=== PATIENT | male | born 1985 | race Two or more races ===

== ENCOUNTER 2019-12-14 15:11 | Emergency (ER) | payer BC ==
[~2019-12-14] VITALS: Ht 177.8 cm; Wt 105.0 kg
--- NOTE | 2019-12-14 15:32 | PHYS DOC ---
General Adult EDM: Chief Complaint: ABDOMINAL PAIN HPI: HPI: Patient is a 34 year old male who presented to ER today for evaluation of abdominal pain, nausea vomiting for about a week. Patient says sometimes he vomits he noted trace of blood in his vomitus. Patient denies any fever, no chills, no headache, no chest pain. Patient had not had this Problem in the past. Patient drinks alcohol socially. Patient had not been taking ibuprofen or Tylenol or Motrin or aspirin. Review of Systems: Review of Systems: Constitutional: Denies fever or chills. [] Eyes: Denies change in visual acuity. [] HENT: Denies nasal congestion or sore throat. [] Respiratory: Denies cough or shortness of breath. [] Cardiovascular: Denies chest pain or edema. [] GI: Positive for abdominal pain, nausea, vomiting, no bloody stools or diarrhea. [] : Denies dysuria. [] Musculoskeletal: Denies back pain or joint pain. [] Integument: Denies rash. [] Neurologic: Denies headache, focal weakness or sensory changes. [] Endocrine: Denies polyuria or polydipsia. [] Lymphatic: Denies swollen glands. [] Psychiatric: Denies depression or anxiety. [] Heart Score: Risk Factors: Risk Factors: DM, Current or recent (<one month) smoker, HTN, HLP, family history of CAD, obesity. Risk Scores: Score 0 - 3: 2.5% MACE over next 6 weeks - Discharge Home Score 4 - 6: 20.3% MACE over next 6 weeks - Admit for Clinical Observation Score 7 - 10: 72.7% MACE over next 6 weeks - Early Invasive Strategies Current Medications: Current Medications Medications (Trade) Dose Ordered Sig/Rachelle Start Time Stop Time Status Last Admin Dose Admin Famotidine (Pepcid Vial) 20 mg 1X ONCE 12/14/19 17:30 12/14/19 17:31 DC 12/14/19 17:42 20 MG Iohexol (Omnipaque 300 Mg/ml) 100 ml 1X ONCE 12/14/19 16:45 12/14/19 16:46 DC 12/14/19 16:50 75 ML Multi-Ingredient Mouthwash/Gargle (Gi Cocktail) 20 ml 1X ONCE 12/14/19 17:30 12/14/19 17:31 DC 12/14/19 17:42 20 ML Physical Exam: PE: Constitutional: Well developed, well nourished, no acute distress, non-toxic appearance. [] HENT: Normocephalic, atraumatic, bilateral external ears normal, oropharynx moist, no oral exudates, nose normal. [] Eyes: PERRLA, EOMI, conjunctiva normal, no discharge. [] Neck: Normal range of motion, no tenderness, supple, no stridor. [] Cardiovascular:Heart rate regular rhythm, no murmur [] Lungs & Thorax: Bilateral breath sounds clear to auscultation [] Abdomen: Bowel sounds normal, soft, there is tenderness at periumbilical area, no masses, no pulsatile masses. [] Skin: Warm, dry, no erythema, no rash. [] Back: No tenderness, no CVA tenderness. [] Extremities: No tenderness, no cyanosis, no clubbing, ROM intact, no edema. [] Neurologic: Alert and oriented X 3, normal motor function, normal sensory function, no focal deficits noted. [] Psychologic: Affect normal, judgement normal, mood normal. [] Current Patient Data: Labs: Laboratory Tests Test 12/14/19 15:35 12/14/19 16:12 White Blood Count 5.9 x10^3/uL Red Blood Count 5.23 x10^6/uL Hemoglobin 15.8 g/dL Hematocrit 45.3 % Mean Corpuscular Volume 87 fL Mean Corpuscular Hemoglobin 30 pg Mean Corpuscular Hemoglobin Concent 35 g/dL Red Cell Distribution Width 13.0 % Platelet Count 246 x10^3/uL Neutrophils (%) (Auto) 61 % Lymphocytes (%) (Auto) 26 % Monocytes (%) (Auto) 8 % Eosinophils (%) (Auto) 4 % Basophils (%) (Auto) 1 % Neutrophils # (Auto) 3.6 x10^3/uL Lymphocytes # (Auto) 1.5 x10^3/uL Monocytes # (Auto) 0.5 x10^3/uL Eosinophils # (Auto) 0.2 x10^3/uL Basophils # (Auto) 0.0 x10^3/uL Prothrombin Time 12.8 SEC Prothromb Time International Ratio 1.0 Activated Partial Thromboplast Time 28 SEC Sodium Level 135 mmol/L Potassium Level 3.9 mmol/L Chloride Level 102 mmol/L Carbon Dioxide Level 28 mmol/L Anion Gap 5 Blood Urea Nitrogen 16 mg/dL Creatinine 1.3 mg/dL Estimated GFR (Cockcroft-Gault) 62.5 BUN/Creatinine Ratio 12 Glucose Level 94 mg/dL Calcium Level 8.6 mg/dL Total Bilirubin 0.8 mg/dL Aspartate Amino Transf (AST/SGOT) 23 U/L Alanine Aminotransferase (ALT/SGPT) 39 U/L Alkaline Phosphatase 82 U/L Total Protein 7.6 g/dL Albumin 3.7 g/dL Albumin/Globulin Ratio 0.9 Lipase 97 U/L Ethyl Alcohol Level < 10 mg/dL Urine Collection Type Unknown Urine Color [place] Urine Clarity Clear Urine pH 7.0 Urine Specific [place] >=1.030 Urine Protein 30 mg/dL Urine Glucose (UA) Negative mg/dL Urine Ketones (Stick) Trace mg/dL Urine Blood Negative Urine Nitrite Negative Urine Bilirubin Small Urine Urobilinogen Dipstick 0.2 mg/dL Urine Leukocyte Esterase Small Urine RBC 0 /HPF Urine WBC Rare /HPF Urine Squamous Epithelial Cells None /LPF Urine Bacteria 0 /HPF Urine Mucus Mod /LPF Urine Sperm Present /HPF Current Medications Medications (Trade) Dose Ordered Sig/Rachelle Route PRN Reason Start Time Stop Time Status Last Admin Dose Admin Iohexol (Omnipaque 300 Mg/ml) 100 ml 1X ONCE IV 12/14/19 16:45 12/14/19 16:46 DC 12/14/19 16:50 Famotidine (Pepcid Vial) 20 mg 1X ONCE IVP 12/14/19 17:30 12/14/19 17:31 DC 12/14/19 17:42 Multi-Ingredient Mouthwash/Gargle (Gi Cocktail) 20 ml 1X ONCE SWSW 12/14/19 17:30 12/14/19 17:31 DC 12/14/19 17:42 EKG: EKG: [] Radiology/Procedures: Radiology/Procedures: [][facility] [address] [place] [address] IMAGING REPORT Signed PATIENT: MEDHAT HOLLIDAY ACCOUNT: [id number] : 1985 LOCATION: ER AGE: 34 SEX: M EXAM STATUS: REG ER ORD. PHYSICIAN: STEFFANIE LAM DO REASON: mid abdominal pain, OMNI 300, 75 ML IV PROCEDURE: CT ABD PELV W/ IV CONTRST ONLY Exam: CT abdomen and pelvis with contrast INDICATION: Mid abdominal pain TECHNIQUE: Sequential axial images through the abdomen and pelvis obtained following the administration of 75 mL of Omni 300 IV contrast. Sagittal and coronal reformatted images were reconstructed from the axial data and reviewed. Comparisons: None FINDINGS: Heart size is normal. No pericardial effusion. Visualized lung bases are clear. No pleural effusion. Liver, spleen, pancreas, gallbladder and adrenals are unremarkable. No perinephric inflammation or hydronephrosis. No renal or ureteral calculi. Kidneys demonstrate symmetric enhancement. Bladder is decompressed not well evaluated. Prostate is not enlarged. Mild wall thickening noted involving proximal small bowel loops. Few diverticula noted predominantly in the descending and sigmoid colon without evidence of acute diverticulitis. Appendix is normal. No free abdominal air or fluid. No obstruction. Abdominal aorta has a normal course and caliber. Abdominal vasculature is patent. No suspicious osseous lesions or acute fractures. IMPRESSION: Findings likely related to mild enteritis involving the proximal small bowel. This may be infectious or inflammatory in etiology. Exposure: One or more of the following in the visualized dose reduction techniques were utilized for this examination: 1. Automated exposure control 2. Adjustment of the MA and/or KV according to patient size 3. Use of iterative of reconstructive technique Electronically signed by: Madhav Velasquez MD (12/14/2019 5:06 PM) [id number] DICTATED and SIGNED BY: MADHAV VELASQUEZ MD DATE: 12/14/19 1706 Course & Med Decision Making: Course & Med Decision Making Pertinent Labs and Imaging studies reviewed. (See chart for details) Patient is a 34-year-old male who presented to ER today for evaluation of abdominal pain, vomiting some trace of blood for about a week. CT scan her a bdomen pelvis and level did not show any acute problem. Patient will be discharged home with antiacid medication and Carafate. Patient was given phone number of the GI specialist for follow-up. Patient is amenable to plan of care. Dragon Disclaimer: Dragon Disclaimer: This electronic medical record was generated, in whole or in part, using a voice recognition dictation system. Departure Departure Impression: Primary Impression: Gastritis Disposition: HOME, SELF-CARE Condition: IMPROVED Referrals: NO PCP (PCP) CHASTITY LAL MD PLEASE CALL THIS GI DOCTOR FOR FOLLOW UP NEXT WEEK Patient Instructions: Gastritis, Adult Additional Instructions: Thank you for visiting our Emergency Department. We appreciate you trusting us with your care. If any additional problems come up don't hesitate to return to visit us. Please follow up with your primary care provider so they can plan additional care if needed and know about the problem that you had. If symptoms worsen come back to the Emergency Department. Any concerning symptoms that start such as chest pain, shortness of air, weakness or numbness on one side of the body, running high fevers or any other concerning symptoms return to the ER. Scripts Omeprazole Magnesium (PRILOSEC OTC) 20 Mg Tablet.dr 40 MG PO DAILY for 30 Days, #60 TAB Prov: STEFFANIE LAM DO 12/14/19 Sucralfate (CARAFATE) 1 Gm Tablet 1 TAB PO QID for 14 Days, #56 TAB 0 Refills Prov: STEFFANIE LAM DO 12/14/19 Justicifation of Admission Dx: Justifications for Admission: Justification of Admission Dx: N/A STEFFANIE LAM DO Dec 14, 2019 15:32
[2019-12-14 15:47] LABS: BASO % 1 % (0-3); EOS # 0.2 x10^3/uL (0.0-0.7); EOS % 4 % (0-3); HEMATOCRIT 45.3 % (39.0-53.0); HEMOGLOBIN 15.8 g/dL (13.0-17.5); LYMPH # 1.5 x10^3/uL (1.0-4.8); LYMPH % 26 % (24-48); MEAN CORPUSCULAR HEMOGLOBIN 30 pg (25-35); MEAN CORPUSCULAR HGB CONC 35 g/dL (31-37); MEAN CORPUSCULAR VOLUME 87 fL (79-100); MONO # 0.5 x10^3/uL (0.0-1.1); MONO % 8 % (0-9); NEUT # 3.6 x10^3/uL (1.8-7.7); NEUT % 61 % (31-73); PLATELET COUNT 246 x10^3/uL (140-400); RED BLOOD COUNT 5.23 x10^6/uL (4.30-5.70); WHITE BLOOD COUNT 5.9 x10^3/uL (4.0-11.0)
[2019-12-14 15:56] LABS: CALCIUM 8.6 mg/dL (8.5-10.1); CREATININE 1.3 mg/dL (0.7-1.3); GFR 62.5; POTASSIUM 3.9 mmol/L (3.5-5.1)
[2019-12-14 15:57] LABS: PROTHROMBIN TIME PATIENT 12.8 SEC (11.7-14.0)
[2019-12-14 16:02] LABS: ALBUMIN 3.7 g/dL (3.4-5.0); ALBUMIN/GLOBULIN RATIO 0.9 (1.0-1.7); TOTAL BILIRUBIN 0.8 mg/dL (0.2-1.0); TOTAL PROTEIN 7.6 g/dL (6.4-8.2)
[2019-12-14] MEDS ORDERED: IOHEXOL 300 MG/ML 100ML VIAL. IV ONE (16:45)
[2019-12-14 16:47] LABS: BILIRUBIN,URINE SMALL (NEG); CLARITY,URINE CLEAR; COLOR,URINE AMBER; NITRITE,URINE NEGATIVE (NEG); PROTEIN,URINE 30 mg/dL (NEG-TRACE); UROBILINOGEN,URINE 0.2 mg/dL (0.2 mg/dL)
[2019-12-14 16:56] LABS: BACTERIA,URINE 0 /HPF (0-FEW); RBC,URINE 0 /HPF (0-2); SPERM,URINE PRESENT /HPF; WBC,URINE RARE /HPF (0-4)
--- NOTE | 2019-12-14 17:08 | RAD ---
Exam: CT abdomen and pelvis with contrast INDICATION: Mid abdominal pain TECHNIQUE: Sequential axial images through the abdomen and pelvis obtained following the administration of 75 mL of Omni 300 IV contrast. Sagittal and coronal reformatted images were reconstructed from the axial data and reviewed. Comparisons: None FINDINGS: Heart size is normal. No pericardial effusion. Visualized lung bases are clear. No pleural effusion. Liver, spleen, pancreas, gallbladder and adrenals are unremarkable. No perinephric inflammation or hydronephrosis. No renal or ureteral calculi. Kidneys demonstrate symmetric enhancement. Bladder is decompressed not well evaluated. Prostate is not enlarged. Mild wall thickening noted involving proximal small bowel loops. Few diverticula noted predominantly in the descending and sigmoid colon without evidence of acute diverticulitis. Appendix is normal. No free abdominal air or fluid. No obstruction. Abdominal aorta has a normal course and caliber. Abdominal vasculature is patent. No suspicious osseous lesions or acute fractures. IMPRESSION: Findings likely related to mild enteritis involving the proximal small bowel. This may be infectious or inflammatory in etiology. Exposure: One or more of the following in the visualized dose reduction techniques were utilized for this examination: 1. Automated exposure control 2. Adjustment of the MA and/or KV according to patient size 3. Use of iterative of reconstructive technique Electronically signed by: Madhav Middleton MD (12/14/2019 5:06 PM) [id number]
[2019-12-14] MEDS ORDERED: FAMOTIDINE 20 MG/2 ML VIAL IVP ONE (17:30)
[2019-12-14] MEDS ORDERED: LIDO:MAALOX 1:1 20 ML SINGLE DOSE. SWSW ONE (17:30)
[2019-12-14] MEDS ORDERED: SUCR1TAB35 PO (18:22)
[2019-12-14] MEDS ORDERED: OMEP20TA63 PO (18:22)
[2019-12-14 19:04] VITALS: BP 157/94
== END 2019-12-14 19:08 | disposition home or self-care (01) ==
LOC: ER 15:11
DX: K29.70 Gastritis, unspecified, without bleeding (principal)
CPT/HCPCS: 36415; 74177; 80053; 81001; 83690; 85025; 85610; 85730; 87086; 96374; 99285; G0480; J3490; Q9967